=== PATIENT | male | born 1990 | race Caucasian/White ===

== ENCOUNTER 2016-10-11 08:50 | Inpatient (IN) | payer OTHER ==
[2016-10-11] MEDS ORDERED: Influenza Vaccine 0.5 mL Syr IM ONE (10:04)
[2016-10-11] MEDS ORDERED: Pneumococcal Vaccine 0.5 mL Vial IM ONE (10:04)
[2016-10-11 10:33] VITALS: BP 132/60
[2016-10-11] MEDS ORDERED: Magnesium Hydroxide (MOM) 30 mL UDC PO PRN (12:05)
[2016-10-11] MEDS ORDERED: Hydrocodone/APAP 5mg/325mg Tab PO PRN (12:05)
[2016-10-11] MEDS ORDERED: Maalox 30 mL Cup PO PRN (12:05)
[2016-10-11] MEDS ORDERED: Hydrocodone/APAP 10 mg/325 mg Tab PO PRN (12:05)
[2016-10-11 12:29] LABS: % EOSINOPHILS 4.8 % (0.0-5.0); % LYMPHOCYTES 27.1 % (20.0-50.0); % MONOCYTES 10.4 % (2.0-10.0); % NEUTROPHILS 56.7 % (40.0-80.0); HEMATOCRIT 41.5 % (39.0-49.0); HEMOGLOBIN 14.2 gm/dL (13.2-17.3); MEAN CELL VOLUME 90.7 fl (80-99); MEAN CORPUSCULAR HEMOGLOBIN 30.9 pg (26.0-30.0); MEAN CORPUSCULAR HGB CONC 34.1 pg (28.0-36.0); PLATELET COUNT 197 Th/cmm (150-400); RED BLOOD COUNT 4.58 Mil/cmm (4.30-5.70); RED CELL DISTRIBUTION WIDTH 13.1 % (11.5-20.0); WHITE BLOOD COUNT 7.3 Th/cmm (4.8-10.8)
[2016-10-11 12:53] LABS: ALB/GLOB RATIO 1.6 (1.0-1.8); ALKALINE PHOSPHATASE 59 U/L (34-104); BILIRUBIN,TOTAL 0.4 mg/dL (0.3-1.0); BUN - UREA NITROGEN 13 mg/dL (7-25); BUN/CREATININE RATIO 16.3; CARBON DIOXIDE 22.9 mEq/L (21.0-31.0); CHLORIDE 107 mEq/L (98-107); CREATININE - SERUM 0.8 mg/dL (0.7-1.3); GLUCOSE 101 mg/dL (70-105); POTASSIUM SERUM 3.9 mEq/L (3.5-5.1); SGOT 32 U/L (13-39); SGPT/ALT 34 U/L (7-52); SODIUM SERUM 137 mEq/L (136-145)
[2016-10-11] MEDS ORDERED: NAFCILLIN IV SCH ×2 (13:00→16:00)
[2016-10-11] MEDS ORDERED: DEXTROSE 5% IV SCH ×2 (13:00→16:00)
--- NOTE | 2016-10-11 17:10 | History & Physical ---
CHIEF COMPLAINT: Left leg cellulitis. HISTORY OF PRESENT ILLNESS: The patient is a 26-year-old male who has been transferred from [facility]. The patient presented to [facility] with a complaint of foot pain. The patient's pain is 8/10, sharp and started 1 day prior to presentation at ER. The patient states he scratches between the toes day before presentation to the ER and started noticing swelling and redness upon presentation to the ER. PAST MEDICAL HISTORY: Negative. PAST SURGICAL HISTORY: Negative. MEDICATIONS: See medication reconciliation form. ALLERGIES: No known allergies. SOCIAL HISTORY: Denies smoking, alcohol or drug use. REVIEW OF SYSTEMS: See history of present illness. PHYSICAL EXAMINATION: GENERAL: The patient is awake, alert, nontoxic in appearance. VITAL SIGNS: On admission, temperature is 98, pulse 75, blood pressure 132/60, respiration 18, O2 sat 97% on room air. HEENT: Normocephalic, atraumatic. Extraocular movements are intact. Pupils are equal and reactive. Oropharynx is clear. NECK: Supple. No thyromegaly. No lymphadenopathy. RESPIRATORY: Clear. No wheeze or rhonchi. CARDIOVASCULAR: S1, S2. No rubs or gallops. GASTROINTESTINAL: Soft, nontender. Positive bowel sounds. GENITOURINARY: No CVA tenderness. No suprapubic tenderness. BACK: No midline tenderness. MUSCULOSKELETAL: No cyanosis, clubbing. SKIN: The patient has erythema overlying the dorsum of the second, third and fourth toe on the left foot. There is a small open wound in the lateral aspect of the third toe. NEUROLOGIC: Cranial nerves are intact. Extraocular movements are intact. Sensory intact. Bilateral muscles normal. PSYCHIATRIC: Negative. LABORATORY DATA: On admission, hematology, WBC 7.3, hemoglobin 14.2, hematocrit per labs, platelet count of 197, 10% monocytes. Chemistry: Sodium 137, potassium 3.9, chloride per labs, bicarb per labs, anion gap 11, BUN 13, creatinine 0.8, GFR is more than 60, glucose 101, calcium 9.0, total bilirubin 0.4, AST 32, ALT 34, albumin 4.1, globulin 2.6. MICROBIOLOGY: No new microbiology results. X-ray of foot performed at [facility] ER shows no evidence of osteomyelitis. IMPRESSION: 1. Left foot pain. 2. Left foot cellulitis. 3. Sepsis. PLAN: The patient was seen by Dr. Dalila Najera. Infectious Disease consultation with Dr. China Hendrix. We will obtain full labs and consultations. JOB# [id number] MTDFredi
[2016-10-12 05:28] LABS: % BASOPHILS 0.6 % (0.0-2.0); % EOSINOPHILS 4.6 % (0.0-5.0); % LYMPHOCYTES 25.4 % (20.0-50.0); % MONOCYTES 9.6 % (2.0-10.0); % NEUTROPHILS 59.8 % (40.0-80.0); HEMATOCRIT 44.5 % (39.0-49.0); HEMOGLOBIN 15.1 gm/dL (13.2-17.3); MEAN CELL VOLUME 90.9 fl (80-99); MEAN CORPUSCULAR HEMOGLOBIN 30.8 pg (26.0-30.0); MEAN CORPUSCULAR HGB CONC 33.9 pg (28.0-36.0); MEAN PLATELET VOLUME 9.5 fl; NEUTROPHILE ABSOLUTE 4.1 Th/cmm (1.8-8.0); PLATELET COUNT 205 Th/cmm (150-400); RED BLOOD COUNT 4.89 Mil/cmm (4.30-5.70); RED CELL DISTRIBUTION WIDTH 13.3 % (11.5-20.0); WHITE BLOOD COUNT 6.9 Th/cmm (4.8-10.8)
[2016-10-12 05:55] LABS: ANION GAP 9.5 (7.0-16.0); BUN - UREA NITROGEN 10 mg/dL (7-25); BUN/CREATININE RATIO 12.5; CALCIUM SERUM 9.6 mg/dL (8.6-10.3); CARBON DIOXIDE 28.9 mEq/L (21.0-31.0); CHLORIDE 103 mEq/L (98-107); CREATININE - SERUM 0.8 mg/dL (0.7-1.3); GLUCOSE 89 mg/dL (70-105); POTASSIUM SERUM 4.4 mEq/L (3.5-5.1); SODIUM SERUM 137 mEq/L (136-145)
[2016-10-12 06:03] LABS: VANCOMYCIN TROUGH 36.2 ug/mL (10-20)
--- NOTE | 2016-10-12 08:16 | Admit Criteria Form ---
Admit Criteria Forms - Admit Criteria Diagnosis: CELLULITIS Clinical Indications for Admission to Inpatient Care (Place 'X' for any and all applicable criteria): Admission is indicated for ANY ONE of the following(1)(2)(3)(4)(5): [ ]I. Limb-threatening infection [ ]II. High-risk comorbid condition as indicated by ANY ONE of the following: [ ]a) Uncontrolled diabetes (eg, HbA1c greater than 10% (0.1)) [ ]b) Cirrhosis [ ]c) Neutropenia [ ]d) Asplenia [ ]e) Immunosuppression [ ]f) Symptomatic heart failure [ ]III. Failure of outpatient therapy as indicated by ALL of the following: [ ]a) Progression or no improvement after adequate trial (minimum of 48 hours, with longer period for stable lower extremity infection) [ ]b) Adequate antibiotic regimen as indicated by use of ANY ONE of the following: [ ]i) First-generation cephalosporin (e.g., cephalexin) [ ]ii) Antistaphylococcal penicillin (e.g., dicloxacillin) [ ]iii) Penicillin-allergic patient regimen (clindamycin, extended-spectrum fluoroquinolone, or doxycycline) [ ]iv) Resistant organism (eg, methicillin-resistant Staphylococcus aureus) regimen (6) [ ]c) Outpatient intravenous therapy regimen is not appropriate due to ANY ONE of the following. (7)(8)(9)(10): [ ]i) It was tried and was not successful (eg, progression of infection). [ ]ii) It is not available or cannot be arranged in a clinically appropriate time frame (e.g., the next day). [ ]iii) Clinical presentation (eg, acuity of infection, rapidity of progression, confirmed or suspected bacteremia) is judged to require ALL of the following: [ ]1) Immediate initiation of intravenous therapy ( eg, cannot wait for next day) [ ]2) Intensity of patient monitoring and observation (eg, vital sign measurement, checks for infection progression) that cannot be provided at other than inpatient level of care [ ]IV. Mental status changes [ ]V. Bacteremia [ ]. Hemodynamic instability [ ]VII. Suspected necrotizing soft tissue infection (e.g., gas in tissue)(11)( 12) [ ]VIII. Orbital infection (13)(14) [ ]IX. Associated surgical procedure (e.g., abscess drainage, debridement) not amenable to outpatient, emergency department, or observation care [ ]X. Cutaneous gangrene [ ]XI. High fever (temperature greater than 39.5 degrees C (103.1 degrees F) (oral)) not responsive to outpatient, emergency department, or observation care therapy [x ]XIII. Inpatient admission required rather than observation care (Also use Cellulitis: Observation Care as appropriate) because of ANY ONE of the following : [ ]a) Periorbital or perineal infection that is severe or worsening [ ]b) Severe pain requiring acute inpatient management [ ]c) IV fluid to replace significant ongoing (e.g., for over 24 hours) losses (greater than 3L/m2 per day) [ ]d) Compartment syndrome monitoring (17) [ ]e) Strict or protective (eg, laminar flow) isolation [ ]f) Urgent debridement or skin grafting [ ]g) Bone or joint debridement [ ]h) Immediate inpatient surgery [x ]i) Other condition, treatment or monitoring requiring inpatient admission Extended stay beyond goal length of stay may be needed for (1)(18): [ ]a) Necrotizing soft tissue infection or fasciitis [ ]b) Gram-negative infection [ ]c) Methicillin-resistant Staphylococcal aureus (MRSA) infection [ ]d) Peripheral venous insufficiency with cellulitis [ ]e) Extensive edema [ ]f) Sepsis or continued Hemodynamic instability [ ]g) Continued high fever or mental status change [ ]h) Bacteremia [ ]i) Active serious comorbid conditions ( eg, heart failure, renal insufficiency) The original [facility] eyefactive content created by [email or web address] has been revised. The portions of the content which have been revised are identified through the use of italic text or in bold, and [facility] has neither reviewed nor approved the modified material. All other unmodified content is copyright [facility] Please see references footnoted in the original [email or web address] edition 2016 Admit Criteria Met?: Pending
--- NOTE | 2016-10-12 22:59 | Consultation ---
This 26-year-old male was brought to the Emergency Room at [facility] with complaint of rash on the left foot. HISTORY OF PRESENT ILLNESS: The patient developed redness and swelling of the left foot. Denies any trauma. Never had this kind of problem before. The patient also had a little bit of low-grade fever and decided to go to ER at [facility] where the patient evaluated and transferred to [facility] for insurance reasons. PAST MEDICAL HISTORY: None. FAMILY HISTORY: Negative. SOCIAL HISTORY: Nonsmoker. REVIEW OF SYSTEMS: A 14-point review of system negative except above. PHYSICAL EXAMINATION: GENERAL: The patient is alert, awake, not in distress. VITAL SIGNS: The following, temperature is 98, maximum temperature 99, pulse 66, respiration 18, blood pressure 117/58. HEENT: Mild pallor, no icterus or plaque. NECK: Supple. LUNGS: Breath sounds bilateral vesicular. CARDIOVASCULAR: S1, S2. ABDOMEN: Soft, bowel sounds present. EXTREMITIES: Left foot cellulitis present. Left foot has a ____ and swelling, no major wounds, no abscess formation. LYMPHATICS: No thyromegaly, no cervical lymph nodes. LABORATORY DATA: White count is 7000, hemoglobin is 14 g, platelets 197. DIAGNOSIS: Left foot cellulitis. PLAN: The patient's wound culture ordered and discontinue nafcillin, start on vancomycin, pharmacy to dose, supportive care. Rest of the care as ordered in CPOE. Thank you, Dr. Kavon Najera, for this consultation. JOB# [id number]
[2016-10-13 05:15] LABS: % EOSINOPHILS 3.8 % (0.0-5.0); % LYMPHOCYTES 23.3 % (20.0-50.0); % NEUTROPHILS 62.9 % (40.0-80.0); HEMATOCRIT 46.6 % (39.0-49.0); HEMOGLOBIN 15.8 gm/dL (13.2-17.3); MEAN CORPUSCULAR HEMOGLOBIN 30.5 pg (26.0-30.0); MEAN CORPUSCULAR HGB CONC 33.9 pg (28.0-36.0); MEAN PLATELET VOLUME 9.1 fl; NEUTROPHILE ABSOLUTE 5.2 Th/cmm (1.8-8.0); PLATELET COUNT 228 Th/cmm (150-400); RED BLOOD COUNT 5.17 Mil/cmm (4.30-5.70); RED CELL DISTRIBUTION WIDTH 13.3 % (11.5-20.0)
[2016-10-13 05:27] LABS: WHITE BLOOD COUNT 8.4 Th/cmm (4.8-10.8)
[2016-10-13 05:30] LABS: ANION GAP 9.6 (7.0-16.0); BUN - UREA NITROGEN 10 mg/dL (7-25); BUN/CREATININE RATIO 11.1; CALCIUM SERUM 10.1 mg/dL (8.6-10.3); CARBON DIOXIDE 29.7 mEq/L (21.0-31.0); CHLORIDE 101 mEq/L (98-107); CREATININE - SERUM 0.9 mg/dL (0.7-1.3); GLUCOSE 89 mg/dL (70-105); POTASSIUM SERUM 4.3 mEq/L (3.5-5.1); SODIUM SERUM 136 mEq/L (136-145)
--- NOTE | 2016-10-13 07:49 | Progress Notes ---
SUBJECTIVE: The patient is awake, alert. The patient is on IV antibiotics. OBJECTIVE: VITAL SIGNS: Temperature 97.3, pulse 58 up from 69, respirations 18, saturations 96% on room air. CARDIOVASCULAR: S1 and S2. RESPIRATORY: Clear. GASTROINTESTINAL: Soft. Positive bowel sounds. LABORATORY DATA: Hematology, WBC 6.9, hemoglobin 15.1, hematocrit per labs and platelet count of 205. No left shift noted. Chemistry: Sodium 137, potassium 4.4, chloride 103, bicarbonate 28, anion gap of 9.5, BUN 10 and creatinine 0.8. GFR is more than 60. Glucose 89. Calcium 9.6. Vancomycin trough is 36.2. MICROBIOLOGY: MRSA screen for October 11 negative. Left foot wound culture from October 11 shows many gram-positive cocci and many gram-positive rods. ASSESSMENT: 1. Sepsis. 2. Left lower extremity cellulitis secondary to gram-positive cocci and gram-positive rods. 3. Left foot pain. PLAN: Continue current medications and treatment.. Obtain labs a.m. Awaiting final culture results. Continue inpatient wound care. Further recommendations per consult. JOB# [id number] [facility]
--- NOTE | 2016-10-14 04:45 | Progress Notes ---
SUBJECTIVE: The patient is awake and alert. The patient is on IV antibiotics. The patient is receiving inpatient wound care. OBJECTIVE: VITAL SIGNS: Temperature 97.5, pulse 59, respiratory rate 18, blood pressure per nursing, and O2 sat on room air. CARDIOVASCULAR: S1 and S2. RESPIRATORY: Clear. GASTROINTESTINAL: Soft. Positive bowel sounds. LABORATORY DATA: Hematology: WBC is 8.4, hemoglobin 15.8, hematocrit 46.6, and platelet count of 228. No left shift noted. Chemistry: Sodium 136, potassium 4.3, chloride per labs, bicarb 29, anion gap 9.6. BUN 10 and creatinine 0.9. GFR is more than 60. Glucose is 89. Calcium 3.1. Microbiology: MRSA screen from 10/11/2016 is negative. Left foot wound culture from 10/11/2016 shows possible MRSA. ASSESSMENT: 1. Sepsis. 2. Left lower extremity cellulitis secondary to methicillin-resistant Staphylococcus aureus. 3. Left foot pain (improved). PLAN: Continue current medication and treatment. Obtain labs in a.m. Awaiting final culture results. Continue inpatient wound care. Further recommendations per consults. JOB# [id number] [facility]
[2016-10-14 06:26] LABS: % BASOPHILS 0.3 % (0.0-2.0); % EOSINOPHILS 3.9 % (0.0-5.0); % LYMPHOCYTES 25.7 % (20.0-50.0); % MONOCYTES 8.5 % (2.0-10.0); % NEUTROPHILS 61.6 % (40.0-80.0); HEMATOCRIT 46.2 % (39.0-49.0); HEMOGLOBIN 15.7 gm/dL (13.2-17.3); MEAN CELL VOLUME 89.9 fl (80-99); MEAN CORPUSCULAR HEMOGLOBIN 30.6 pg (26.0-30.0); MEAN CORPUSCULAR HGB CONC 34.1 pg (28.0-36.0); MEAN PLATELET VOLUME 9.2 fl; NEUTROPHILE ABSOLUTE 5.1 Th/cmm (1.8-8.0); PLATELET COUNT 261 Th/cmm (150-400); RED BLOOD COUNT 5.13 Mil/cmm (4.30-5.70); WHITE BLOOD COUNT 8.2 Th/cmm (4.8-10.8)
[2016-10-14 08:11] LABS: BUN - UREA NITROGEN 12 mg/dL (7-25); BUN/CREATININE RATIO 13.3; CALCIUM SERUM 10.3 mg/dL (8.6-10.3); CARBON DIOXIDE 27.4 mEq/L (21.0-31.0); CHLORIDE 103 mEq/L (98-107); CREATININE - SERUM 0.9 mg/dL (0.7-1.3); GLUCOSE 113 mg/dL (70-105); POTASSIUM SERUM 4.4 mEq/L (3.5-5.1); SODIUM SERUM 137 mEq/L (136-145)
--- NOTE | 2016-10-14 14:07 | Infectious Disease Prog Note ---
Infectious Disease Subjective - Review of Systems Service Date: 10/14/16 Subjective: cc mrsa cellulitis hpi- pt schedule for d/c plan d/w staff cleocin x 7 days prescribed ros no fever o/e vss chest claet abd soft l foot cellulitis less Infectious Disease Objective - Results Result Diagrams: 10/14/16 05:14 10/14/16 05:14 Recent Labs: Laboratory Last Values WBC 8.2 Th/cmm (4.8-10.8) 10/14/16 05:14 RBC 5.13 Mil/cmm (4.30-5.70) 10/14/16 05:14 Hgb 15.7 gm/dL (13.2-17.3) 10/14/16 05:14 Hct 46.2 % (39.0-49.0) 10/14/16 05:14 MCV 89.9 fl (80-99) 10/14/16 05:14 MCH 30.6 pg (26.0-30.0) H 10/14/16 05:14 MCHC Differential 34.1 pg (28.0-36.0) 10/14/16 05:14 RDW 13.0 % (11.5-20.0) 10/14/16 05:14 Plt Count 261 Th/cmm (150-400) 10/14/16 05:14 MPV 9.2 fl 10/14/16 05:14 Neutrophils % 61.6 % (40.0-80.0) 10/14/16 05:14 Lymphocytes % 25.7 % (20.0-50.0) 10/14/16 05:14 Monocytes % 8.5 % (2.0-10.0) 10/14/16 05:14 Eosinophils % 3.9 % (0.0-5.0) 10/14/16 05:14 Basophils % 0.3 % (0.0-2.0) 10/14/16 05:14 ESR 4 mm/hr (0-20) 10/14/16 05:14 Sodium 137 mEq/L (136-145) 10/14/16 05:14 Potassium 4.4 mEq/L (3.5-5.1) 10/14/16 05:14 Chloride 103 mEq/L (98-107) 10/14/16 05:14 Carbon Dioxide 27.4 mEq/L (21.0-31.0) 10/14/16 05:14 Anion Gap 11.0 (7.0-16.0) 10/14/16 05:14 BUN 12 mg/dL (7-25) 10/14/16 05:14 Creatinine 0.9 mg/dL (0.7-1.3) 10/14/16 05:14 Est GFR ( Amer) > 60.0 ml/min (>90) 10/14/16 05:14 Est GFR (Non-Af Amer) > 60.0 ml/min 10/14/16 05:14 BUN/Creatinine Ratio 13.3 10/14/16 05:14 Glucose 113 mg/dL (70-105) H 10/14/16 05:14 POC Glucose 137 MG/DL (70 - 105) H 10/11/16 10:00 Calcium 10.3 mg/dL (8.6-10.3) 10/14/16 05:14 Total Bilirubin 0.4 mg/dL (0.3-1.0) 10/11/16 12:20 AST 32 U/L (13-39) 10/11/16 12:20 ALT 34 U/L (7-52) 10/11/16 12:20 Alkaline Phosphatase 59 U/L (34-104) 10/11/16 12:20 C-Reactive Protein mg/dL (0.0-0.9) 10/13/16 05:00 Total Protein 6.7 gm/dL (6.0-8.3) 10/11/16 12:20 Albumin 4.1 gm/dL (4.2-5.5) L 10/11/16 12:20 Globulin 2.6 gm/dL 10/11/16 12:20 Albumin/Globulin Ratio 1.6 (1.0-1.8) 10/11/16 12:20 Vancomycin Trough 16.5 ug/mL (10-20) 10/14/16 11:00 - Physical Exam Vitals and I&O: Vital Signs Temp 97.8 F 10/14/16 12:00 Pulse 73 10/14/16 12:00 Resp 18 10/14/16 12:00 BP 106/57 10/14/16 12:00 Pulse Ox 99 10/14/16 12:00 Intake & Output 10/13/16 10/14/16 10/14/16 17:59 06:59 18:59 Intake Total Balance Intake: Intake, IV Amount Vancomycin HCl 1.25 gm In Sodium Chloride 0.9% 250 ml @ 165 mls/hr IV Q8H [facility] Rx#:[id number] Oral Other: # Voids Active Medications: Current Medications Acetaminophen (Tylenol) 650 mg PO Q6H PRN PRN Reason: Mild Pain/Headache/T above 101 Stop: 12/10/16 12:04 Acetaminophen/Hydrocodone Bitart ([place] 10 Mg/325 Mg) 1 tab PO Q6H PRN PRN Reason: Pain (Severe) Stop: 12/10/16 12:04 Acetaminophen/Hydrocodone Bitart ([place] 5mg/325mg) 1 tab PO Q6H PRN PRN Reason: Moderate Pain Stop: 12/10/16 12:04 Al Hydrox/Mg Hydrox/Simethicone (Maalox) 30 ml PO Q6H PRN PRN Reason: Constipation Stop: 12/10/16 12:04 Vancomycin HCl 1.25 gm/ Sodium (Chloride) 250 mls @ 165 mls/hr IV Q8H [facility] Stop: 12/11/16 11:59 Last Admin: 10/14/16 13:28 Dose: 165 mls/hr Lorazepam (Ativan) 1 mg PO Q6H PRN; Protocol PRN Reason: Anxiety/Agitation Stop: 12/10/16 12:04 Magnesium Hydroxide (Milk Of Magnesia) 30 ml PO HS PRN PRN Reason: Constipation Stop: 12/10/16 12:04 Miscellaneous (Vancomycin Iv Per Pharmacy) 1 ea MC PRN PRN PRN Reason: PROTOCOL Stop: 12/10/16 12:09 Ondansetron HCl (Zofran Odt) 4 mg PO Q6H PRN PRN Reason: Nausea / Vomiting Stop: 12/10/16 12:04 Sodium Chloride (Saline Flush) 10 ml IV [facility] Stop: 12/10/16 19:59 Last Admin: 10/14/16 09:39 Dose: 10 ml
--- NOTE | 2016-10-14 22:49 | Discharge Summary ---
DISCHARGE DIAGNOSES: 1. Sepsis. 2. Left foot cellulitis secondary to MRSA. 3. Left foot pain (resolved). HOSPITAL COURSE: The patient is a 26-year-old male who was transferred from [place] from ER. The patient has admitting diagnoses of left foot pain, left foot cellulitis, and sepsis. The patient was admitted to Med-Surg unit. Infectious Disease consult was obtained from Dr. China Hendrix. Per recommendation of Infectious Disease, obtain pancultures. The patient was started on empiric coverage with vancomycin. The foot culture result shows MRSA. Per recommendation of Infectious Disease, the patient can be discharged home on clindamycin to complete course of therapy. The patient has been prescribed abx by Infectious Disease. The patient is to follow up with PMD/PCP in 1 week's time. JOB# [id number] EDU
--- NOTE | 2016-10-15 01:47 | Progress Notes ---
SUBJECTIVE: The patient is awake and alert. The patient is on IV antibiotics. The patient is inpatient wound care. OBJECTIVE: VITAL SIGNS: Temperature 97.8, pulse 73, blood pressure 106/57, respirations 18 and O2 sat 98% on room air. CARDIOVASCULAR: S1 and S2. RESPIRATIONS: Clear. ABDOMEN: Soft. Positive bowel sounds. LABORATORY DATA: The patient has hematology WBC 8.2, hemoglobin 15.7, hematocrit 46.2 and platelet count of 261. Chemistry: Sodium 137, potassium 4.4, chloride 103, bicarb 27, anion gap 11, BUN 12 and creatinine 0.9. GFR is more than 60. Glucose 113, calcium 10.3, vancomycin, trough is 16.5. Microbiology: MRSA screen from 10/11/2016, negative. Left foot wound culture from 10/11/2016, shows MRSA. ASSESSMENT: 1. Sepsis. 2. Left foot cellulitis secondary to MRSA. 3. Left foot pain (resolved). 4. Hyperglycemia. PLAN: Continue current medication. associate account manager for discharge planning. Further per consults. Thank you very much. JOB# [id number] EDU
== END 2016-10-14 17:30 | disposition home or self-care (01) | DRG 720 ==
LOC: MSI 08:50
PROVIDERS: ADMIT Preventive Medicine Preventive Medicine/Occupational Environmental Medicine; ATTEND Preventive Medicine Preventive Medicine/Occupational Environmental Medicine
DX: A41.9 Sepsis, unspecified organism (principal); L03.116 Cellulitis of left lower limb; B96.89 Other specified bacterial agents as the cause of diseases classified elsewhere; B95.62 Methicillin resistant Staphylococcus aureus infection as the cause of diseases classified elsewhere; R73.9 Hyperglycemia, unspecified
CPT/HCPCS: 36415-UA; 80048-TC; 80053-TC; 80202-TC; 82948-90; 85025-TC; 85652-TC; 86141-TC; 87070-90; 87075-90; 87205-90; J3370; J3490